=== PATIENT | female | born 1980 ===

== ENCOUNTER 2018-04-08 04:51 | Emergency (ER) | payer MEDICAID ==
[2018-04-08] MEDS ORDERED: Ketorolac Tromethamine 30 MG/ML VIAL ONE (05:46)
[2018-04-08] MEDS ORDERED: HYDROcodone/Acetaminophen 10/325 mg Tablet ONE (05:46)
--- NOTE | 2018-04-08 07:32 | RAD ---
SACRUM AND COCCYX: DATE: 04/08/18. FINDINGS: Three views are submitted. Detail of the sacrum, in particular, is partially obscured by overlying g as and fecal material. This slightly reduces the sensitivity of the study. No fracture was evident. Thos arcuate lines of the sacrum that I can see appear intact. The SI join ts are symmetrical. Pubic symphysis shows no widening or offset. The pubic rings appear intact. Th e coccyx appears normal on the lateral view. Incidental soft tissue calcifications are seen around t he pelvic area and they are of no current concern. IMPRESSION: Slightly reduced sensitivity study showing no acute traumatic findings. If clinical suspicion of fra cture were high, a CT would be needed to remove all doubts. POS: HOME
== END 2018-04-08 05:52 | disposition home or self-care (01) ==
LOC: BURERS 04:51
DX: S30.0XXA Contusion of lower back and pelvis, initial encounter (principal); F17.200 Nicotine dependence, unspecified, uncomplicated; W19.XXXA Unspecified fall, initial encounter
CPT/HCPCS: 72220; 96372; J1885

== ENCOUNTER 2018-04-14 19:21 | Emergency (ER) | payer MEDICAID ==
[2018-04-14] MEDS ORDERED: Ketorolac Tromethamine 30 MG/ML VIAL ONE (20:18)
--- NOTE | 2018-04-14 20:29 | RAD ---
RIGHT HAND THREE VIEWS: 04/14/2018 FINDINGS: There is a fracture at the base of the middle phalanx of the ring finger on the volar aspect of the P IP joint. There is no displacement. The remainder of the hand and wrist appears intact. IMPRESSION: Fracture at the base of the middle phalanx of the ring finger. POS: HOME
== END 2018-04-14 20:21 | disposition home or self-care (01) ==
LOC: BURERS 19:21
DX: S62.624A Displaced fracture of middle phalanx of right ring finger, initial encounter for closed fracture (principal); S30.0XXA Contusion of lower back and pelvis, initial encounter; G89.29 Other chronic pain; B20 Human immunodeficiency virus [HIV] disease; F17.200 Nicotine dependence, unspecified, uncomplicated; W19.XXXA Unspecified fall, initial encounter
CPT/HCPCS: 96372; J1885; Q4049